=== PATIENT | female | born 1945 | race Caucasian/White ===

== ENCOUNTER → 2016-08-11 | Outpatient (CLI) | payer OTHER ==
[~2016-08-11] MED LIST: GASTROGRAFIN SOLUTION 30ML (Q9963) As Ordered ONE; ISOVUE-370 76% 100ML VIAL (Q9967) As Ordered ONE
--- NOTE | 2016-08-12 04:44 | REP ---
Clinical: History of lung cancer for follow up. Comparison: PET/CT dated 05/13/[address] dated 04/01/2016. Technique: Axial contrast enhanced images from the thoracic inlet to the upper abdomen using 100 ml Isovue 370 intravenous contrast material with coronal and sagittal re-formations. Findings: A lobulated left upper lobe lesion which demonstrates hypermetabolic activity has increased in size from 10 mm to 17 mm (image 28). A multilobulated right lower lobe lesion which demonstrates hypermetabolic activity has increased from 17 mm to 21 mm (image 44 - 45). Two smaller areas of irregularity in the right upper lobe (image 23) are unchanged. No consolidation, pleural effusion/reaction or pneumothorax identified. Mediastinal and left hilar lymph nodes measure up to approximately 9 mm short axis diameter. Heart/pericardium and thoracic aorta remains stable and again demonstrate atherosclerotic disease without aneurysm or dissection. No pericardial effusion noted. Musculoskeletal structures are intact without focal osseous abnormality. [id number] identified in the right anterior chest wall. Impression: The two previously identified hypermetabolic foci on PET CT dated 05/13/2016 have mildly increased in size. Remainder examination appears relatively stable. Signed by Pb Watt MD 08/12/2016 04:36 A
--- NOTE | 2016-08-12 04:52 | REP ---
Clinical: History of lung and bladder cancer. Comparison: 03/06/2016. Technique: Axial contrast enhanced images from the lung bases to the pubic symphysis using oral and 100 ml Isovue 370 intravenous contrast material with precontrast and delayed images of the abdomen as well as coronal and sagittal re-formations. Findings: Right kidney demonstrates delayed nephrogram as well as mild perinephric stranding and grade 4 hydroureteronephrosis secondary to a 4.4 cm enhancing mass at the bladder trigone obstructing the right ureter at the ureteropelvic junction which has increased from 2.3 cm maximal diameter on prior examination. Uterus and adnexa appear normal. No obvious, significant pelvic adenopathy is appreciated and no pelvic fluid or ascites is identified. Lung bases clear. Visualized heart and pericardium are relatively normal. Liver, spleen, pancreas, gallbladder, bilateral adrenal glands and left kidney/ureter appear normal. The enteric system is without obstruction or acute inflammatory process. No ascites. No intraperitoneal or retroperitoneal adenopathy identified. IVC filter identified below the level of the right renal vein. Osseous structures demonstrate age-related degenerative changes. Impression: Right-sided grade 4 hydroureteronephrosis secondary to 4.4 cm obstructing enhancing bladder mass at the bladder trigone which has increased in size from prior examination. No associated pelvic fluid or obvious adenopathy appreciated. Signed by Pb Watt MD 08/12/2016 04:43 A
== END ==
LOC: M RAD 14:06
PROVIDERS: ATTEND Internal Medicine Medical Oncology
DX: C34.90 Malignant neoplasm of unspecified part of unspecified bronchus or lung (principal); C67.9 Malignant neoplasm of bladder, unspecified
CPT/HCPCS: 71260; 74178; Q9963; Q9967

== ENCOUNTER → 2016-09-02 | Outpatient (CLI) | payer OTHER ==
[~2016-09-02] MED LIST changes: +ALBUTEROL SULFATE 2.5 MG/0.5 ML INH NEB SOLN As Ordered ONE; +ALBUTEROL SULFATE 2.5 MG/0.5 ML INH NEB SOLN INH ONE; +CIPROFLOXACIN 400 MG in APPROPRIATE DILUENT 1 EA IV ONE; +CIPROFLOXACIN/D5W 400 MG/200 ML BAG (J0744) As Ordered ONE; -GASTROGRAFIN SOLUTION 30ML (Q9963) As Ordered ONE; +HYDR-3713 PO; +ISOVUE-300 61% 50ML VIAL (Q9967) As Ordered ONE; -ISOVUE-370 76% 100ML VIAL (Q9967) As Ordered ONE; +LIDOCAINE 2% MDV 20 ML VIAL As Ordered ONE; +LR 1,000 ML IV SCH; +MIDAZOLAM INJ 2 MG/2 ML VIAL (J2250) As Ordered ONE; +NORCO, ANEXSIA 5/325MG TABLET (HYDROcodone/ACETAMINOPHEN) PO PRN; +ONDANSETRON 4MG/2ML VIAL (J2405) IV PRN; +SODIUM BICARBONATE 8.4% INJ 50MEQ 50 ML VIAL As Ordered ONE; +fentaNYL 100 MCG/2 ML INJECTION (J3010) As Ordered ONE; +fentaNYL 100 MCG/2 ML INJECTION (J3010) IV PRN
[2016-09-02 11:22] LABS: MICROSCOPIC INDICATED? MAN YES (NO)
[2016-09-02 11:24] LABS: BACTERIA, URINE MOD AMOUNT; HYALINE CAST, URINE NONE SEEN /lpf (0-1); MICROSCOPIC EXAM PERFORMED; RBC, URINE 20-30 /hpf (0-3); SQUAMOUS EPITHELIAL CELL URINE SMALL AMOUNT /hpf (SMALL AMT)
[2016-09-02 13:20] VITALS: BP 152/72
--- NOTE | 2016-09-02 17:11 | REPKIM ---
CLINICAL HISTORY: Lung ca, Bladder mass, Hydronephrosis on the right and Elevated creatinine. The referring urology service has requested a nephroureteral catheter (stent) placement on the right. PROCEDURE PERFORMED: 1. Ultrasound Right Kidney 2. Percutaneous antegrade Nephrostogram 3. Ureter Dilation and Percutaneous Nephroureteral catheter (stent) placement INTERVENTIONALIST: Alejandro Yost MD CONSENT: The risks, benefits and alternatives to the procedure were explained to the patient and informed written consent was obtained. SEDATION: Sedation and analgesia was provided by the Anesthesiology Dept. MEDICATIONS: Cipro 400mg IV, Local Lidocaine CONTRAST: 40 mL Isovue 300 EBL: less than 10 mL FLUORO TIME: 11.6 minutes DEVICES USED: 8.5F 26cm Nephroureteral catheter (stent) Lot #[id number], 8 and 10 mm Balloons Lot#[id number] PROCEDURE/FINDINGS: The patient was brought to the interventional radiology suite and placed in the prone position, right flank prepped and draped in the usual sterile fashion. Time out procedure was performed. Ultrasound of the right kidney showed moderate to severe hydronephrosis. Using ultrasound and fluoroscopy guidance, a 21-gauge Accustick needle was advanced into the targeted lower pole posterior calyx of the kidney, after infiltration of the skin and deep tissues with local anesthetic. A sample of the urine from the right kidney sent for c/s. Contrast was injected and images were obtained. This showed complete obstruction involving the distal ureter. There is no antegrade flow of contrast into the urinary bladder. A vascular sheath was then introduced into the ureter over a guidewire. Using a hydrophilic guidewire, the catheter-wire combination was advanced across the distal ureter obstruction into the urinary bladder. The wire was then exchanged for a stiff wire. The distal ureter tumor stricture was then pre-dilated with angioplasty balloons. An 8.5-St [place] 26-cm length nephroureteral catheter was introduced over the guidewire. The guidewire was withdrawn and the distal end of the loop positioned in the bladder and proximal end of the loop positioned in the renal pelvis. Contrast was injected via the NU catheter and DSA images were obtained. This showed antegrade flow of contrast via the NU stent into the urinary bladder. The nephroureteral catheter was then flushed and capped. The patient tolerated the procedure well with no immediate complications. This procedure was performed using ultrasound and fluoroscopy. Dr. Yost was present. IMPRESSION: 1. Moderate to severe hydronephrosis secondary to bladder mass on the right. Nephrostogram demonstrates complete obstruction involving the distal ureter. A sample of the urine from the right kidney sent for c/s. 2. Successful 8.5F 26-cm nephroureteral catheter (stent) placement as discussed above. Findings and discharge instructions discussed with the patient and family. cc: Dr. Cristian LAMB
== END ==
LOC: M IRPRO 08:52 → M SDC 08:52 → EDSTATUS 09-04 09:30
DX: N13.1 Hydronephrosis with ureteral stricture, not elsewhere classified (principal); N32.9 Bladder disorder, unspecified
CPT/HCPCS: 50433; 50706; 81000; 87086; 94640; C1769; C1887; C1894; C2625; J0744; J2250; J3010; Q9967

== ENCOUNTER → 2016-09-15 | Outpatient (REF) | payer OTHER ==
[~2016-09-15] MED LIST changes: -ALBUTEROL SULFATE 2.5 MG/0.5 ML INH NEB SOLN As Ordered ONE; -ALBUTEROL SULFATE 2.5 MG/0.5 ML INH NEB SOLN INH ONE; -CIPROFLOXACIN 400 MG in APPROPRIATE DILUENT 1 EA IV ONE; -CIPROFLOXACIN/D5W 400 MG/200 ML BAG (J0744) As Ordered ONE; -ISOVUE-300 61% 50ML VIAL (Q9967) As Ordered ONE; -LIDOCAINE 2% MDV 20 ML VIAL As Ordered ONE; -LR 1,000 ML IV SCH; -MIDAZOLAM INJ 2 MG/2 ML VIAL (J2250) As Ordered ONE; -NORCO, ANEXSIA 5/325MG TABLET (HYDROcodone/ACETAMINOPHEN) PO PRN; -ONDANSETRON 4MG/2ML VIAL (J2405) IV PRN; -SODIUM BICARBONATE 8.4% INJ 50MEQ 50 ML VIAL As Ordered ONE; -fentaNYL 100 MCG/2 ML INJECTION (J3010) As Ordered ONE; -fentaNYL 100 MCG/2 ML INJECTION (J3010) IV PRN
[2016-09-15 14:14] LABS: THYROXINE (T4) 10.3 UG/DL (4.5-12.0)
== END ==
LOC: M LAB REF 12:57
PROVIDERS: ATTEND Internal Medicine Medical Oncology
DX: C67.9 Malignant neoplasm of bladder, unspecified (principal); Z79.899 Other long term (current) drug therapy

== ENCOUNTER → 2016-10-02 | Outpatient (REF) | payer OTHER ==
[2016-10-02 13:50] LABS: THYROXINE (T4) 10.4 UG/DL (4.5-12.0)
== END ==
LOC: M LAB REF 12:27
PROVIDERS: ATTEND Internal Medicine Medical Oncology
DX: C67.9 Malignant neoplasm of bladder, unspecified (principal); Z79.899 Other long term (current) drug therapy

== ENCOUNTER → 2016-10-12 | Outpatient (CLI) | payer OTHER ==
[~2016-10-12] MED LIST changes: +CIPROFLOXACIN 500 MG TAB As Ordered ONE; +ISOVUE-300 61% 50ML VIAL (Q9967) As Ordered ONE; +LIDOCAINE 2% MDV 20 ML VIAL As Ordered ONE; +SODIUM BICARBONATE 8.4% INJ 50MEQ 50 ML VIAL As Ordered ONE
--- NOTE | 2016-10-12 15:46 | REPKIM ---
CLINICAL HISTORY: Patient with a history of lung ca, bladder ca, right sided hydronephrosis due to bladder mass/ca has a nephroureteral catheter (stent) on the right. The referring urology service has asked a nephroureteral catheter ( stent) check and change for routine maintenance. PROCEDURE PERFORMED: Nephrostogram, Nephroureteral Drainage Catheter (Stent) Change INTERVENTIONALIST: Alejandro Yost MD CONSENT: The risks, benefits and alternatives to the procedure were explained to the patient and informed written consent was obtained. EBL: 1mL MEDICATIONS: Local Lidocaine and Cipro CONTRAST: 27 mL Isovue 300 FLUORO TIME: 1.4 minutes DEVICE USED: 8.5F 26 cm Nephroureteral catheter (stent) Lot #[id number] PROCEDURE/FINDINGS: NEPHROSTOGRAM: The patient was brought to the interventional radiology suite where a timeout procedure was performed. The patient was placed in the prone position. The existing indwelling catheter and right flank prepped and draped in the usual sterile fashion. Contrast was injected through the existing NU catheter. This showed the catheter is in a satisfactory course and position with some antegrade flow of contrast into the urinary bladder thought the NU catheter. A guidewire was advanced through the existing NU catheter with its tip positioned in the bladder. The existing NU catheter was removed and a 7-Persian vascular sheath was advanced with its tip positioned in the proximal ureter. Contrast was injected and over the wire Nephrostogram was obtained. This showed distal ureter tumor stricture with no free antegrade flow of contrast into the urinary bladder NEPHROURETERAL DRAINAGE CATHETER (STENT) CHANGE: The vascular sheath was removed. Then a new 8.5-Persian 26-cm nephroureteral drainage catheter (stent) was advanced over the guidewire. The guidewire was removed and the distal loop of the NU drainage catheter formed in the urinary bladder. The proximal loop was formed in the renal pelvis. Contrast was gently hand injected, confirming satisfactory drainage catheter positioning. There is free antegrade flow of contrast into the urinary bladder via the NU catheter ( stent). The NU catheter was then flushed and capped. The patient tolerated the procedure well with no immediate complications. This procedure was performed using fluoroscopy. IMPRESSION: Over the wire Nephrostogram demonstrates distal ureter tumor stricture with no free antegrade flow of contrast into the urinary bladder. Successful nephroureteral drainage catheter (stent) change on the right as discussed above. Contrast injection via the nephroureteral catheter demonstrates free antegrade flow of contrast into the urinary bladder via the NU catheter (stent). Plan: Routine maintenance catheter check/change in approximately 6 weeks or earlier if signs of tube dysfunction were to occur. cc: Cristian Parra MD MTDVanessa
== END | disposition home or self-care (01) ==
LOC: M IRPRO 10:30
DX: N13.1 Hydronephrosis with ureteral stricture, not elsewhere classified (principal); C67.9 Malignant neoplasm of bladder, unspecified
CPT/HCPCS: 50382; C1769; C1894; C2625; Q9967

== ENCOUNTER → 2016-10-19 | Outpatient (REF) | payer OTHER ==
[~2016-10-19] MED LIST changes: -CIPROFLOXACIN 500 MG TAB As Ordered ONE; -ISOVUE-300 61% 50ML VIAL (Q9967) As Ordered ONE; -LIDOCAINE 2% MDV 20 ML VIAL As Ordered ONE; -SODIUM BICARBONATE 8.4% INJ 50MEQ 50 ML VIAL As Ordered ONE
[2016-10-19 14:28] LABS: THYROXINE (T4) 10.3 UG/DL (4.5-12.0)
== END ==
LOC: M LAB REF 13:05
PROVIDERS: ATTEND Internal Medicine Medical Oncology
DX: C67.9 Malignant neoplasm of bladder, unspecified (principal); E06.9 Thyroiditis, unspecified

== ENCOUNTER → 2016-10-29 | Outpatient (REF) | payer OTHER | LOC: M LAB REF 11:15 | PROVIDERS: ATTEND Internal Medicine Medical Oncology | DX: C67.9 Malignant neoplasm of bladder, unspecified (principal); Z79.899 Other long term (current) drug therapy ==

== ENCOUNTER → 2016-11-13 | Outpatient (CLI) | payer OTHER ==
--- NOTE | 2016-11-13 17:17 | REP ---
MR BRAIN WITHOUT CONTRAST: HISTORY: Headache. Areas of increased signal intensity on T2 weighted images are present in the periventricular and subcortical white matter and oksana. This represents small vessel ischemic disease. There is no intraparenchymal hemorrhage, infarct, mass or midline shift. The ventricular system and cortical sulci are dilated consistent with moderate volume loss. There is no extracerebral collection. Mucosal thickening is present in the maxillary sinuses. IMPRESSION: 1. Small vessel ischemic disease. 2. Moderate volume loss. Signed by Dom Sommer MD 11/13/2016 05:20 P
== END ==
LOC: M RAD 13:55
PROVIDERS: ATTEND Internal Medicine Medical Oncology
DX: R51 Headache (principal); Z85.118 Personal history of other malignant neoplasm of bronchus and lung

== ENCOUNTER → 2016-11-17 | Outpatient (CLI) | payer OTHER ==
[~2016-11-17] MED LIST changes: +GASTROGRAFIN SOLUTION 30ML (Q9963) As Ordered ONE; +ISOVUE-370 76% 100ML VIAL (Q9967) As Ordered ONE
--- NOTE | 2016-11-18 07:00 | REP ---
Clinical: Metastatic bladder carcinoma. Technique: Axial contrast enhanced images from the lung bases to the pubic symphysis using oral and 100 ml Isovue 370 intravenous contrast material with precontrast and delayed images of the abdomen as well as coronal and sagittal re-formations. Comparison: 08/11/2016. Findings: Lung bases without obvious consolidation, nodule or mass lesion. Visualized portions of the heart and pericardium normal. No pleural effusion. There is a subtle relatively hypodense 2 cm lesion in the left lateral segment of the liver which appears to represent a change from prior examination and requires correlation/follow-up as metastatic focus cannot be excluded. Spleen, pancreas, gallbladder, right adrenal gland and left kidney appear normal. Nodular appearance to the left adrenal gland is similar to prior examination and may represent hyperplasia. Right kidney appears mildly atrophic and includes a urostomy and stent extending to the bladder. The enteric system is without obstruction or acute inflammatory process. Evaluation of the pelvis demonstrates enhancing irregular nodular bladder mass along the right posterolateral aspect of the bladder which measures greater than 6 cm maximal AP diameter and is increased from prior examination. Uterus / adnexa appeared grossly unremarkable and stable. Subtle pelvic sidewall adenopathy with lymph nodes measuring up to 7 mm represents change from prior examination. No significant ascites. No free air. No retroperitoneal adenopathy. Atherosclerotic changes of the aorta and vasculature noted. IVC filter in satisfactory position. Musculoskeletal structures demonstrate age-related changes without focal osseous abnormality. Impression: 1. 2 cm hypodense lesion in the left lateral segment of the liver not identifiable on prior examination possibly reflecting metastatic disease. Follow-up ultrasound examination may be warranted. 2. Right nephrostomy and ureteral stent in satisfactory position and previously noted hydronephrosis has resolved. 3. Nodular, enhancing bladder mass increased from prior examination with mild surrounding stranding and small new left pelvic sidewall lymph nodes up to 7 mm. Signed by Pb Watt MD 11/18/2016 06:52 A
--- NOTE | 2016-11-18 07:06 | REP ---
Clinical: Metastatic bladder carcinoma. Technique: Axial contrast enhanced images from the thoracic inlet to the upper abdomen using 100 ml Isovue 370 intravenous contrast material with coronal and sagittal re-formations. Comparison: 24 . Findings: The previously identified left upper lobe lesion has increased to approximately 2.1 cm maximal diameter with surrounding spiculation and interstitial changes. The previously identified right lower lobe lesion has increased to approximately 2.3 cm maximal diameter with surrounding spiculation and interstitial changes. Smaller new lesions are also identified within the right lung (image 21). Underlying chronic interstitial changes and trace scattered fibro atelectatic changes as well as mild bronchiectasis again noted. Left hilar adenopathy increased and now measures 12 mm short axis diameter. No pleural effusion. No pneumothorax. Thoracic aorta, heart and pericardium appear stable and again demonstrate atherosclerotic disease and mild cardiomegaly without pericardial effusion or aortic aneurysm/dissection. Musculoskeletal structures demonstrate degenerative changes without focal osseous abnormality. [id number] identified in the right anterior chest wall extending into the right atrium. Impression: Increasing pulmonary metastatic disease. Signed by Pb Watt MD 11/18/2016 06:58 A
== END ==
LOC: M RAD 15:00
PROVIDERS: ATTEND Internal Medicine Medical Oncology
DX: C34.90 Malignant neoplasm of unspecified part of unspecified bronchus or lung (principal); C67.9 Malignant neoplasm of bladder, unspecified
CPT/HCPCS: 71260; 74178; Q9963; Q9967

== ENCOUNTER → 2016-11-19 | Outpatient (REF) | payer OTHER ==
[~2016-11-19] MED LIST changes: -GASTROGRAFIN SOLUTION 30ML (Q9963) As Ordered ONE; -ISOVUE-370 76% 100ML VIAL (Q9967) As Ordered ONE
[2016-11-19 19:46] LABS: THYROXINE (T4) 11.9 UG/DL (4.5-12.0)
== END ==
LOC: M LAB REF 16:34
PROVIDERS: ATTEND Internal Medicine Medical Oncology
DX: C67.9 Malignant neoplasm of bladder, unspecified (principal); Z79.899 Other long term (current) drug therapy

== ENCOUNTER → 2016-12-01 | Outpatient (CLI) | payer OTHER ==
[~2016-12-01] MED LIST changes: +ALBU83IN INH; +BREO1INH3 INH; +CIPROFLOXACIN 500 MG TAB As Ordered ONE; +DITR5TAB PO; +FURO40TA2 PO; +HYDR-2808 PO; +ISOVUE-300 61% 50ML VIAL (Q9967) As Ordered ONE; +K-TA1TAB PO; +LIDOCAINE 2% MDV 20 ML VIAL As Ordered ONE; +MONT10TA2 PO; +SODIUM BICARBONATE 8.4% INJ 50MEQ 50 ML VIAL As Ordered ONE; +SYNT150T PO; +fentaNYL 100 MCG/2 ML INJECTION (J3010) As Ordered ONE
--- NOTE | 2016-12-01 18:01 | REPKIM ---
CLINICAL HISTORY: Patient with a history of lung ca, bladder ca, right sided hydronephrosis due to bladder ca has a nephroureteral catheter (stent) on the right. Patient presents for a nephroureteral catheter (stent) check and change. PROCEDURE PERFORMED: Nephrostogram, Nephroureteral Drainage Catheter (Stent) Change INTERVENTIONALIST: Alejandro Yost MD CONSENT: The risks, benefits and alternatives to the procedure were explained to the patient and informed written consent was obtained. EBL: 1mL MEDICATIONS: Local Lidocaine, Fentanyl 50 mcg IV and Cipro. Independent trained observer was present during the entire duration of the procedure for monitoring. CONTRAST: 24 mL Isovue 300 FLUORO TIME: 1.9 minutes DEVICE USED: 8.5F 26 cm Nephroureteral catheter (stent) Lot #[id number] PROCEDURE/FINDINGS: NEPHROSTOGRAM: The patient was brought to the interventional radiology suite where a timeout procedure was performed. The patient was placed in the prone position. The existing indwelling catheter and right flank prepped and draped in the usual sterile fashion. Contrast was injected through the existing NU catheter. This showed the catheter is in a satisfactory course and position. This showed antegrade flow of contrast into the urinary bladder thought the NU catheter. The distal end of the catheter is partially occluded. A guidewire was advanced through the existing NU catheter with its tip positioned in the bladder. A large filling defect in the right side of the bladder compatible with bladder ca mass. NEPHROURETERAL DRAINAGE CATHETER (STENT) CHANGE: The vascular sheath was removed. Then a new 8.5-Sami 26-cm nephroureteral drainage catheter (stent) was advanced over the guidewire. The guidewire was removed and the distal loop of the NU drainage catheter formed in the urinary bladder. The proximal loop was formed in the renal pelvis. Contrast was gently hand injected, confirming satisfactory drainage catheter positioning. There is free antegrade flow of contrast into the urinary bladder via the NU catheter ( stent). The NU catheter was then flushed and capped. The patient tolerated the procedure well with no immediate complications. This procedure was performed using fluoroscopy. IMPRESSION: Successful nephroureteral drainage catheter (stent) change on the right as discussed above. Contrast injection via the nephroureteral catheter demonstrates antegrade flow of contrast into the urinary bladder via the NU catheter (stent) as discussed above. There is a large filling defect in the right side of the bladder compatible with bladder ca. Plan: Routine maintenance catheter check/change in approximately 6 weeks or earlier if signs of tube dysfunction were to occur. cc: Cristian Parra MD MTDD
== END | disposition home or self-care (01) ==
LOC: M IRPRO 11:02
DX: Z43.6 Encounter for attention to other artificial openings of urinary tract (principal); N13.30 Unspecified hydronephrosis; C67.9 Malignant neoplasm of bladder, unspecified
CPT/HCPCS: 50382; C1769; C1887; C2625; J3010; Q9967

== ENCOUNTER → 2016-12-03 | Outpatient (REF) | payer OTHER ==
[~2016-12-03] MED LIST changes: -CIPROFLOXACIN 500 MG TAB As Ordered ONE; -ISOVUE-300 61% 50ML VIAL (Q9967) As Ordered ONE; -LIDOCAINE 2% MDV 20 ML VIAL As Ordered ONE; -SODIUM BICARBONATE 8.4% INJ 50MEQ 50 ML VIAL As Ordered ONE; -fentaNYL 100 MCG/2 ML INJECTION (J3010) As Ordered ONE
[2016-12-03 17:54] LABS: FREE T4 1.59 NG/DL (0.76-1.46)
== END ==
LOC: M LAB REF 16:21
PROVIDERS: ATTEND Internal Medicine Medical Oncology
DX: D64.9 Anemia, unspecified (principal); C67.0 Malignant neoplasm of trigone of bladder; C34.90 Malignant neoplasm of unspecified part of unspecified bronchus or lung

== ENCOUNTER 2016-12-04 10:28 | Outpatient (CLI) | payer OTHER ==
[~2016-12-04] VITALS: Ht 157.5 cm; Wt 77.7 kg
[~2016-12-04 10:28] MED LIST changes: +ACETAMINOPHEN TAB 650MG DOSE (2X325MG) PO SCH; -ALBU83IN INH; -BREO1INH3 INH; -FURO40TA2 PO; +FUROSEMIDE 20 MG/2 ML VIAL (J1940) IV ONE; -HYDR-2808 PO; -K-TA1TAB PO; -MONT10TA2 PO; +SODIUM CHLORIDE 0.9% INJ 10 ML SYR IV SCH; -SYNT150T PO; +diphenhydrAMINE 25 MG CAP PO SCH
[2016-12-04] MEDS ORDERED: diphenhydrAMINE 25 MG CAP PO SCH (10:40)
[2016-12-04] MEDS ORDERED: FUROSEMIDE 20 MG/2 ML VIAL (J1940) IV ONE (13:00)
[2016-12-04] MEDS ORDERED: SYNT150T PO (13:50)
[2016-12-04] MEDS ORDERED: MONT10TA2 PO (13:50)
[2016-12-04] MEDS ORDERED: FURO40TA2 PO (13:51)
[2016-12-04] MEDS ORDERED: K-TA1TAB PO (13:52)
[2016-12-04] MEDS ORDERED: BREO1INH3 INH (13:53)
[2016-12-04] MEDS ORDERED: ALBU83IN INH (13:53)
[2016-12-04] MEDS ORDERED: HYDR-2808 PO (14:11)
== END 2016-12-04 16:00 | disposition home or self-care (01) ==
LOC: M INFU 10:28
PROVIDERS: ATTEND Internal Medicine Medical Oncology
DX: D64.9 Anemia, unspecified (principal); C34.90 Malignant neoplasm of unspecified part of unspecified bronchus or lung; C67.9 Malignant neoplasm of bladder, unspecified; Z79.51 Long term (current) use of inhaled steroids; Z79.899 Other long term (current) drug therapy; Z88.0 Allergy status to penicillin; Z88.8 Allergy status to other drugs, medicaments and biological substances; Z91.048 Other nonmedicinal substance allergy status
CPT/HCPCS: 36430; J1940; P9016

== ENCOUNTER → 2016-12-24 | Outpatient (REF) | payer OTHER ==
[~2016-12-24] MED LIST changes: -ACETAMINOPHEN TAB 650MG DOSE (2X325MG) PO SCH; +ALBU83IN INH; +BREO1INH3 INH; +FURO40TA2 PO; -FUROSEMIDE 20 MG/2 ML VIAL (J1940) IV ONE; +HYDR-2808 PO; +K-TA1TAB PO; +MONT10TA2 PO; -SODIUM CHLORIDE 0.9% INJ 10 ML SYR IV SCH; +SYNT150T PO; -diphenhydrAMINE 25 MG CAP PO SCH
[2016-12-24 19:42] LABS: FREE T4 1.77 NG/DL (0.76-1.46)
== END ==
LOC: M LAB REF 16:44
PROVIDERS: ATTEND Internal Medicine Medical Oncology
DX: C67.9 Malignant neoplasm of bladder, unspecified (principal); Z79.899 Other long term (current) drug therapy

== ENCOUNTER → 2017-01-20 | Outpatient (CLI) | payer OTHER ==
[~2017-01-20] MED LIST changes: +GASTROGRAFIN SOLUTION 30ML (Q9963) As Ordered ONE; +ISOVUE-370 76% 100ML VIAL (Q9967) As Ordered ONE
--- NOTE | 2017-01-20 16:03 | REP ---
Clinical: Given history of colon, bladder, and lung cancer. Technique: Axial contrast enhanced images from the lung bases to the pubic symphysis using oral and 100 ml Isovue 370 intravenous contrast material with precontrast and delayed images of the abdomen. Comparison: 11/17/2016. Findings: Lung bases are relatively clear with minimal presumed scarring in the medial right middle lobe. Visualized heart and pericardium normal. The liver demonstrates innumerable metastatic lesions measuring up to roughly 3 cm in the anterior segment right lobe and 3.7 cm in the lateral segment left lobe. Lesions appear to be more prominent and more numerous compared to prior examination. Spleen, pancreas, gallbladder, bilateral adrenal glands and kidneys are normal / stable. Atrophic appearance of the right kidney with nephrostomy and urostomy in stable position. The enteric system is without obstruction or obvious acute inflammatory process. The bladder includes large bladder mass along the right posterolateral aspect of the bladder which appears to have increased from prior examination currently measuring 9.3 cm maximal AP diameter and previously measuring 6.3 cm maximal AP diameter at the same level. The uterus is inseparable from this large bladder mass but appears grossly normal. No obvious pelvic or retroperitoneal adenopathy is appreciated. IVC filter identified in stable position. Atherosclerotic changes to the vasculature noted without aneurysm. No ascites. No free air. Musculoskeletal structures demonstrate degenerative changes. Impression: 1. Innumerable liver lesions compatible with metastatic disease increased from prior examination as described above. 2. Stable appearance to the right kidney which appears atrophic and includes nephrostomy and urostomy tubes in satisfactory position. 3. Large bladder mass appears increased in size from prior examination. No obvious associated adenopathy or ascites. Signed by Pb Watt MD 01/20/2017 03:56 P
--- NOTE | 2017-01-20 16:37 | REP ---
Clinical: History of bladder, colon, and lung cancer. Technique: Axial contrast enhanced images from the thoracic inlet to the upper abdomen using 100 ml Isovue 370 intravenous contrast with multiplanar re-formations Comparison: 11/17/2016, 08/11/2016. Findings: 2.5 cm spiculated mass lesion in the left upper lobe as well as 2.4 cm spiculated mass lesion in the right lower lobe have slightly increased in size/volume when compared to prior examination. Associated left hilar adenopathy is also increased from prior examination. Smaller nodules in the right upper lobe (images 27, 18) remain relatively stable. No obvious new lesions are identified. Underlying chronic emphysematous and interstitial changes noted. Tracheobronchial tree is patent. No pleural effusion or pneumothorax. Mediastinum demonstrates atherosclerotic changes to the thoracic aorta and coronary arteries without aortic aneurysm or cardiomegaly. No pericardial effusion. Musculoskeletal structures are intact. Impression: The spiculated mass lesion in the left upper lobe and right lower lobe appear to have slightly increased in size/volume and left hilar adenopathy is also increased. No new lesions are identified. No consolidation, or effusion. Signed by Pb Watt MD 01/20/2017 04:28 P
== END ==
LOC: M RAD 13:01
PROVIDERS: ATTEND Internal Medicine Medical Oncology
DX: C67.9 Malignant neoplasm of bladder, unspecified (principal); C34.90 Malignant neoplasm of unspecified part of unspecified bronchus or lung
CPT/HCPCS: 71260; 74178; Q9963; Q9967

== ENCOUNTER → 2017-02-11 | Outpatient (REF) | payer OTHER ==
[~2017-02-11] MED LIST changes: -GASTROGRAFIN SOLUTION 30ML (Q9963) As Ordered ONE; -ISOVUE-370 76% 100ML VIAL (Q9967) As Ordered ONE
[2017-02-11 17:31] LABS: FREE T4 1.72 NG/DL (0.76-1.46)
== END ==
LOC: M LAB REF 16:38
PROVIDERS: ATTEND Internal Medicine Medical Oncology
DX: C34.90 Malignant neoplasm of unspecified part of unspecified bronchus or lung (principal); C67.9 Malignant neoplasm of bladder, unspecified; Z79.899 Other long term (current) drug therapy